=== PATIENT | female | born 1955 | race Caucasian/White ===

== ENCOUNTER 2020-09-18 03:54 | Emergency (ER) | payer MEDICAID ==
[~2020-09-18] VITALS: Ht 147.3 cm; Wt 46.6 kg
[2020-09-18] MEDS ORDERED: LIDOCAINE-MPF 1%, 5ML ONE ×2 (04:17→04:49)
[2020-09-18] MEDS ORDERED: DIPH,PERTUSS(ACELL),TET VAC/PF 0.5 ML IM-VACC ONE ×2 (04:17→04:30)
[2020-09-18] MEDS ORDERED: L.E.T SOLUTION TP ONE ×2 (04:17→04:30)
[2020-09-18] MEDS ORDERED: LIDOCAINE-MPF 1%, 5ML INFIL ONE (04:30)
--- NOTE | 2020-09-18 05:07 | NUR ---
avulsion site cleansed with sterile saline after let solution placed. pt tolerated well, set up for sutures. erp to go in and evaluate
[2020-09-18] MEDS ORDERED: ONDANSETRON ODT 8 MG ONE (05:23)
--- NOTE | 2020-09-18 05:27 | NUR ---
erp at bedside for sutures, pt nauseas and was throwing up, medicated with 8mg po zofran per dr. christopher.
[2020-09-18] MEDS ORDERED: NEOSPORIN OINT. PKT 1 PACKET ONE ×2 (05:38→05:45)
[2020-09-18 05:43] VITALS: BP 121/93
[2020-09-18] MEDS ORDERED: ONDANSETRON ODT 8 MG PO ONE (06:00)
== END 2020-09-18 06:45 | disposition home or self-care (01) ==
LOC: ED 06:00
DX: S06.0X1A Concussion with loss of consciousness of 30 minutes or less, initial encounter (principal); S01.81XA Laceration without foreign body of other part of head, initial encounter; M54.2 Cervicalgia; W01.0XXA Fall on same level from slipping, tripping and stumbling without subsequent striking against object, initial encounter; Y93.89 Activity, other specified; Y92.89 Other specified places as the place of occurrence of the external cause; Y99.8 Other external cause status
CPT/HCPCS: 12052; 70450; 72125; 90471; 90715; 99285; Q0162